=== PATIENT | male | born 1970 | race Caucasian/White ===

== ENCOUNTER 2024-11-08 14:22 | Outpatient (CLI) | payer OTHER | END 2024-11-08 14:23 | disposition home or self-care (01) | LOC: CSHMRI 14:22 | PROVIDERS: ATTEND Family Medicine | DX: M54.50 Low back pain, unspecified (principal); M47.816 Spondylosis without myelopathy or radiculopathy, lumbar region; M48.061 Spinal stenosis, lumbar region without neurogenic claudication; R93.7 Abnormal findings on diagnostic imaging of other parts of musculoskeletal system | CPT/HCPCS: 72148 ==